=== PATIENT | male | born 1975 | race Caucasian/White ===

== ENCOUNTER 2024-06-04 02:18 | Emergency (ER) | payer MEDICAID ==
[~2024-06-04] VITALS: Ht 175.3 cm; Wt 97.9 kg
[2024-06-04] MEDS ORDERED: HALOPERIDOL LACTATE 5 MG/ML VIAL ONE (03:21)
[2024-06-04] MEDS ORDERED: DiphenhydrAMINE HCL 50 MG/ML VIAL ONE (03:21)
[2024-06-04] MEDS ORDERED: LORazepam 2 MG/ML VIAL ONE (03:21)
[2024-06-04] MEDS: LORazepam 2 MG/ML VIAL IM ONE (03:22)
[2024-06-04] MEDS: DiphenhydrAMINE HCL 50 MG/ML VIAL IM ONE (03:22)
[2024-06-04] MEDS: HALOPERIDOL LACTATE 5 MG/ML VIAL IM ONE (03:22)
[2024-06-04 06:50] LABS: ANION GAP 11 mmol/L (8-16); CALCIUM, TOTAL 8.3 mg/dL (8.8-10.5); CARBON DIOXIDE 22 mmol/L (22-29); CHLORIDE 110 mmol/L (98-107); CREATININE 0.79 mg/dL (0.60-1.30); GLOMERULAR FILTR. RATE CALC > 60 mL/min (>60); GLUCOSE,RANDOM 121 mg/dL (70-110); POTASSIUM 3.7 mmol/L (3.5-5.1); SODIUM SERUM 143 mmol/L (136-145); UREA NITROGEN, BLOOD 8 mg/dL (7-18)
[2024-06-04 06:52] LABS: ALCOHOL, BLOOD (SERUM) 106 mg/dL (0-10)
[2024-06-04 07:07] LABS: HEMATOCRIT 36.7 % (41-53); HEMOGLOBIN 12.2 g/dL (13.5-17.5); MEAN CORPUSCULAR HEMOGLOBIN 29.8 pg (26.0-34.0); MEAN CORPUSCULAR HGB CONC 33.2 G/dL (31.0-37.0); MEAN CORPUSCULAR VOLUME 90 fL (80-100); PLATELET COUNT (AUTO) 200 K/uL (150-450); RED BLOOD CELL COUNT(AUTO) 4.08 MIL/uL (4.50-5.90); RED CELL DISTRIBUTION WIDTH 14.8 % (11.5-14.5); WHITE BLOOD COUNT (AUTO) 8.7 K/uL (4.5-11.0)
[2024-06-04 07:30] LABS: COVID AG,FIA SOURCE NASAL SWAB
[2024-06-04 07:55] LABS: SARS-COV2 (COVID) ANTIGEN,FIA Negative (Negative)
[2024-06-04 07:55] LABS: BAND NEUTROPHILS % (MANUAL) 0 % (0-5)
[2024-06-04 08:01] LABS: EOSINOPHILS % (MANUAL) 5 % (1-6); LYMPHOCYTES % (MANUAL) 23 % (22-44); MONOCYTES % (MANUAL) 5 % (2-9); SEGMENTED NEUTROPHILS % 67 % (40-70); TOTAL CELLS COUNTED 100
[2024-06-04] MEDS ORDERED: QUET50TA24 PO (09:35)
[2024-06-04] MEDS ORDERED: LISI20TA24 PO (09:35)
[2024-06-04] MEDS ORDERED: LISI10TA24 PO (09:35)
[2024-06-04] MEDS ORDERED: ROSU20TA98 PO (09:35)
[2024-06-04] MEDS ORDERED: PRAZ5 PO (09:35)
[2024-06-04] MEDS ORDERED: DULA0.75 SQ (09:35)
[2024-06-04] MEDS ORDERED: METO200T37 PO (09:35)
[2024-06-04] MEDS ORDERED: QUET200T30 PO (09:35)
[2024-06-04 09:49] LABS: ALCOHOL, URINE DRUG SCREEN POSITIVE (NEGATIVE); AMPHET/METH SCREEN,URINE NEGATIVE (NEGATIVE); BARBITURATE SCREEN, URINE NEGATIVE (NEGATIVE); BENZODIAZEPINES SCREEN,URINE NEGATIVE (NEGATIVE); CANNABINOID SCREEN,URINE POSITIVE (NEGATIVE); COCAINE SCREEN,URINE NEGATIVE (NEGATIVE); METHADONE SCREEN, URINE NEGATIVE (NEGATIVE); OPIATE SCREEN,URINE NEGATIVE (NEGATIVE); PHENCYCLIDINE SCREEN,URINE NEGATIVE (NEGATIVE)
[2024-06-04] MEDS: LISINOPRIL 10 MG TABLET PO ONE (10:02)
[2024-06-04 11:53] VITALS: TEMP 98.4
[2024-06-04 15:03] VITALS: BP 152/95; PULSE 106; RESP 18; O2SAT 99
== END 2024-06-04 18:29 ==
LOC: EMS 02:18
DX: F10.129 Alcohol abuse with intoxication, unspecified (principal); F31.9 Bipolar disorder, unspecified; E11.9 Type 2 diabetes mellitus without complications; M19.90 Unspecified osteoarthritis, unspecified site; Z55.9 Problems related to education and literacy, unspecified; Z56.9 Unspecified problems related to employment; Z88.8 Allergy status to other drugs, medicaments and biological substances; Z20.822 Contact with and (suspected) exposure to COVID-19; Y90.9 Presence of alcohol in blood, level not specified
CPT/HCPCS: 99291; 87426; 80048; 85025; 36415; 96372; 80307; G0480; J1200; J1630; J2060